=== PATIENT | male | born 1995 | race Caucasian/White ===

== ENCOUNTER 2018-02-25 11:46 | Emergency (ER) | payer SELFPAY ==
[~2018-02-25] VITALS: Ht 170.2 cm; Wt 57.7 kg
[2018-02-25 12:00] VITALS: BP 110/62
[2018-02-25] MEDS: AZITHROMYCIN 250 MG TAB PO ONE (13:13)
[2018-02-25] MEDS: cefTRIAXone 250 MG in LIDOCAINE MPF 1% - 5 mL VIAL 0.9 ML IM ONE (13:15)
[2018-02-25] MEDS ORDERED: cefTRIAXone 250 MG VIAL ONE (13:16)
[2018-02-25] MEDS ORDERED: LIDOCAINE 1% 50 ML ONE (13:17)
[2018-02-25 13:46] VITALS: BP 111/64
== END 2018-02-25 13:46 | disposition home or self-care (01) ==
LOC: MED 11:46
DX: R30.0 Dysuria (principal)
CPT/HCPCS: 36415; 81002; 96372; 99283; J0696; J2001